=== PATIENT | female | born 1935 | race Caucasian/White ===

== ENCOUNTER 2017-01-19 16:33 | Emergency (ER) | payer MEDICARE, OTHER, MEDICAID ==
[2017-01-19 17:02] VITALS: BP 147/89
[2017-01-19] MEDS ORDERED: traMADol 50 MG Tab PO ONE (17:39)
--- NOTE | 2017-01-19 18:03 | EDM.PDOC ---
ED HPI GENERAL MEDICAL PROBLEM - General Chief Complaint: Head Injury Stated Complaint: Fall Time Seen by Provider: 01/19/17 17:10 Source of Information: Reports: Family, [facility] Records History Limitations: Reports: No Limitations - History of Present Illness INITIAL COMMENTS - FREE TEXT/NARRATIVE: 81 year old female presents to the ED, accompanied by family, for evaluation after a fall. She reportedly fell from her wheelchair. The fall was unwitnessed by intermediate staff. They were able to get her up with no concerns at time of the fall this morning. However, the patient began to complain of pain. She has dementia and is unable to say where her pain is. She has a bump to the back of her head. Family is present at bedside. The say the patient's mental status is at her baseline. She is normally confused with unorganized speech. The family does not feel she was injured badly. She is not on blood thinners. [ End ] - Related Data Allergies Allergy/AdvReac Type Severity Reaction Status Date / Time No Known Allergies Allergy Verified 01/19/17 16:58 Home Meds: Home Meds Albuterol/Ipratropium [DuoNeb 3.0-0.5 MG/3 ML] 1 ampule INH Q4HWA 07/28/14 [ History] Budesonide [Pulmicort] 0.5 mg IH BID 07/28/14 [History] Acetaminophen [Tylenol] 650 mg PO QID 12/31/14 [History] Bisacodyl [Dulcolax] 10 mg PO DAILY 01/19/17 [History] Capsaicin 42.5 gm TP DAILY 01/19/17 [History] Heat Tx 1 pad TOP DAILY 01/19/17 [History] LORazepam [Ativan] 0.5 mg PO DAILY 01/19/17 [History] Polyethylene Glycol 3350 [MiraLAX] 17 gm PO DAILY 01/19/17 [History] traMADol [Ultram] 50 mg PO BID 01/19/17 [History] Past Medical History Cardiovascular History: Reports: Afib, High Cholesterol, Hypertension Other Cardiovascular History: Hx AAA Respiratory History: Reports: COPD Gastrointestinal History: Reports: Chronic Constipation Genitourinary History: Reports: Urinary Incontinence Musculoskeletal History: Reports: Back Pain, Chronic, Fibromyalgia, Other (See Below) Other Musculoskeletal History: Dorsalgia Neurological History: Reports: Alzheimers Disease Psychiatric History: Reports: Aggressive/Hostile Behaviors, Alzheimers Disease , Anxiety, Dementia Social & Family History - Tobacco Use Smoking Status *Q: Former Smoker Years of Tobacco use: 70 Packs/Tins Daily: 1 Used Tobacco, but Quit: No Month Tobacco Last Used: 3 Second Hand Smoke Exposure: No - Caffeine Use Caffeine Use: Reports: None - Alcohol Use Days Per Week of Alcohol Use: 0 - Recreational Drug Use Recreational Drug Use: No - Living Situation & Occupation Living situation: Reports: Extended Care Facility Occupation: Retired ED ROS GENERAL - Review of Systems Review Of Systems: Unable To Obtain (due to dementia) ED EXAM, HEAD INJURY - Physical Exam Exam: See Below Exam Limited By: Altered Mental Status General Appearance: Alert, No Apparent Distress, Thin Head: Normocephalic, Other (posterior scalp bruising and redness. No hematoma.Otherwise normal head exam) Eyes: Bilateral Eye: EOMI, Normal Inspection, PERRL Ears: Normal External Exam, Normal Canal, Normal TMs Nose: Normal Inspection, Normal Mucousa, No Blood Throat/Mouth: Normal Inspection, Normal Oropharynx, No Airway Compromise Neck: Non-Tender, Full Range of Motion, Normal Alignment, Normal Inspection. No : Spinous Processes Tender, Tender Midline Respiratory: No Respiratory Distress, Lungs Clear, Normal Breath Sounds Cardiovascular: Regular Rate, Rhythm GI/Abdominal Exam: Normal Bowel Sounds, Soft, Non-Tender Back Exam: Normal Inspection, Full Range of Motion. No: Muscle Spasm, Paraspinal Tenderness, Vertebral Tenderness Extremities: Other (Tenderness with palpation of right hip. No external rotation or obvious deformity. Other extremities are normal. Pelvis is stable with rocking. ) Neurologic: No Motor/Sensory Deficits, Alert, Other (intact cerebellar testing. patient is confused at baseline ) - James Coma Score Best Eye Response ([place]): (4) Open Spontaneously Best Verbal Response (James): (4) Confused Conversation Best Motor Response (James): (6) Obeys Commands Course - Vital Signs Last Recorded V/S: Last Vital Signs Temp 98.5 F 01/19/17 16:58 Pulse 71 01/19/17 16:58 Resp 20 01/19/17 16:58 BP 147/89 H 01/19/17 16:58 Pulse Ox 96 01/19/17 16:58 - Orders/Labs/Meds Meds: Medications Discontinued Medications Generic Name Dose Route Start Last Admin Trade Name Elisabet PRN Reason Stop Dose Admin Tramadol HCl 50 mg 01/19/17 17:39 01/19/17 17:46 Ultram PO 01/19/17 17:40 50 mg ONETIME ONE Administration - Re-Assessments/Exams Free Text/Narrative Re-Assessment/Exam: I offered head CT but family declined. Patient does have a normal neuro exam with confusion at baseline. Full head to to exam reveals no areas of significant tenderness, deformity, bruising, or crepitus. She said "ouch" when I palpated her right hip, therefore x-rays were obtained. No acute fracture identified on x-ray. Patient was treated with Tramadol which she has ordered at the intermediate. She was discharged back to the intermediate. Departure - Departure Time of Disposition: 18:02 Disposition: DC/Tfer to Procurement Services Manager [facility] [place] [facility] Condition: Good Clinical Impression: Fall with no significant injury Qualifiers: Encounter type: initial encounter Qualified Code(s): W19.XXXA - Unspecified fall, initial encounter - Discharge Information Instructions: Fall Prevention in the Home, [id number] Referrals: Dilshad Daugherty MD [Primary Care Provider] - Forms: ED Department Discharge Additional Instructions: Continue current medications and Tramadol as prescribed Return to ER with any new or worsening symptoms, neurologic changes, or other concerns Follow-up with her PCP in 3-4 days for recheck
--- NOTE | 2017-01-20 07:26 | CR ---
Right hip: AP and frog-leg lateral views of the right hip were obtained. Moderate joint space narrowing seen diffusely within the right hip. Bony structures are osteopenic. Previous vertebroplasty is noted within L4. Extensive vascular calcification is present. Sclerotic lesion is seen within the proximal femoral shaft believed to be incidental. No acute fracture or other abnormality is identified. Impression: 1. Degenerative change, osteopenia and vascular calcification. 2. Other incidental findings. No acute abnormality is identified on two-view right hip exam. Diagnostic code #2
== END 2017-01-19 18:10 ==
LOC: JD.ED 16:33
DX: S00.03XA Contusion of scalp, initial encounter (principal); I10 Essential (primary) hypertension; I48.91 Unspecified atrial fibrillation; E78.00 Pure hypercholesterolemia, unspecified; J44.9 Chronic obstructive pulmonary disease, unspecified; F03.90 Unspecified dementia, unspecified severity, without behavioral disturbance, psychotic disturbance, mood disturbance, and anxiety; Z87.891 Personal history of nicotine dependence; Z79.899 Other long term (current) drug therapy; W05.0XXA Fall from non-moving wheelchair, initial encounter
CPT/HCPCS: 73502; 99284; A9270; 99283

== ENCOUNTER 2017-12-23 16:03 | Emergency (ER) | payer MEDICARE, OTHER, MEDICAID ==
--- NOTE | 2017-12-23 16:15 | EDM.PDOC ---
ED HPI GENERAL MEDICAL PROBLEM - General Chief Complaint: Lower Extremity Injury/Pain Stated Complaint: AMBULANCE Time Seen by Provider: 12/23/17 16:09 Source of Information: Reports: EMS, [facility] Records History Limitations: Reports: No Limitations - History of Present Illness INITIAL COMMENTS - FREE TEXT/NARRATIVE: The patient presents from the [facility] for unwitnessed fall and left hip pain. She was brought in by [facility]. They also said she was more confused. She has alzheimers and she is on medication. She does not walk and he bed is low to the ground. They do not thinks she had any LOC but they cannot be sure because it was unwitnessed. She has no pain complaints. She has no headache, neck pain, back pain, chest pain, abdominal pain, nausea or vomiting. Location: Reports: Lower Extremity, Left (hip) Severity: Moderate Improves with: Reports: Immobilization Worsens with: Reports: Movement Context: Reports: Trauma (There was an unwitnessed fall) Associated Symptoms: Reports: No Other Symptoms - Related Data Allergies Allergy/AdvReac Type Severity Reaction Status Date / Time No Known Allergies Allergy Verified 01/19/17 16:58 Home Meds: Home Meds Albuterol/Ipratropium [DuoNeb 3.0-0.5 MG/3 ML] 1 ampule INH Q4HWA 07/28/14 [ History] Budesonide [Pulmicort] 0.5 mg IH BID 07/28/14 [History] Acetaminophen [Tylenol] 650 mg PO QID 12/31/14 [History] Bisacodyl [Dulcolax] 10 mg PO DAILY 01/19/17 [History] Capsaicin 42.5 gm TP DAILY 01/19/17 [History] Heat Tx 1 pad TOP DAILY 01/19/17 [History] LORazepam [Ativan] 0.5 mg PO DAILY 01/19/17 [History] Polyethylene Glycol 3350 [MiraLAX] 17 gm PO DAILY 01/19/17 [History] traMADol [Ultram] 50 mg PO BID 01/19/17 [History] Past Medical History Cardiovascular History: Reports: Afib, High Cholesterol, Hypertension Other Cardiovascular History: Hx AAA Respiratory History: Reports: COPD Gastrointestinal History: Reports: Chronic Constipation Genitourinary History: Reports: Urinary Incontinence Musculoskeletal History: Reports: Back Pain, Chronic, Fibromyalgia, Other (See Below) Other Musculoskeletal History: Dorsalgia Neurological History: Reports: Alzheimers Disease Psychiatric History: Reports: Aggressive/Hostile Behaviors, Alzheimers Disease , Anxiety, Dementia Social & Family History - Caffeine Use Caffeine Use: Reports: None - Living Situation & Occupation Living situation: Reports: Extended Care Facility Occupation: Retired Review of Systems - Review of Systems Review Of Systems: See Below Constitutional: Reports: No Symptoms Eyes: Reports: No Symptoms Ears: Reports: No Symptoms Nose: Reports: No Symptoms Mouth/Throat: Reports: No Symptoms Respiratory: Reports: No Symptoms Cardiovascular: Reports: No Symptoms GI/Abdominal: Reports: No Symptoms Musculoskeletal: Reports: No Symptoms ED EXAM, GENERAL - Physical Exam Exam: See Below Exam Limited By: Other (The patient is alert but confused) General Appearance: Alert, Other (confused) Ears: Normal External Exam Nose: Normal Inspection Head: Atraumatic, Normocephalic Neck: Normal Inspection, Supple, Non-Tender Respiratory/Chest: No Respiratory Distress, Lungs Clear, Normal Breath Sounds Cardiovascular: Regular Rate, Rhythm, No Edema, No Murmur GI/Abdominal: Soft, Non-Tender, No Organomegaly, No Mass Back Exam: Normal Inspection Extremities: Normal Inspection Neurological: Alert, Other (Confused) Course - Re-Assessments/Exams Free Text/Narrative Re-Assessment/Exam: 12/23/17 16:14 Yoli my primary nurse for the patient cares for her at the [facility] and she said this is her normal. The patient has no pain complaints. I examined her and I cannot find anything that hurts. I feel it is safe for her to go home without any further studies. Departure - Departure Time of Disposition: 16:15 Disposition: Home, Self-Care 01 Condition: Good Clinical Impression: Fall Qualifiers: Encounter type: initial encounter Qualified Code(s): W19.XXXA - Unspecified fall, initial encounter - Discharge Information *PRESCRIPTION DRUG MONITORING PROGRAM REVIEWED*: Not Applicable *COPY OF PRESCRIPTION DRUG MONITORING REPORT IN PATIENT BRIT: Not Applicable Additional Instructions: Take your medication as prescribed. Please return if you are worse.
[2017-12-23 16:23] VITALS: BP 144/78
== END 2017-12-23 16:25 | disposition home or self-care (01) ==
LOC: JD.ED 16:03
DX: M25.552 Pain in left hip (principal); I48.91 Unspecified atrial fibrillation; I10 Essential (primary) hypertension; E78.00 Pure hypercholesterolemia, unspecified; J44.9 Chronic obstructive pulmonary disease, unspecified; Z79.899 Other long term (current) drug therapy
CPT/HCPCS: 99283; 99285

== ENCOUNTER 2017-12-25 00:05 | Emergency (ER) | payer MEDICARE, OTHER, MEDICAID ==
[2017-12-25 00:13] VITALS: BP 103/79
--- NOTE | 2017-12-25 01:30 | EDM.PDOC ---
ED HPI GENERAL MEDICAL PROBLEM - General Chief Complaint: Gastrointestinal Problem Stated Complaint: [facility] Time Seen by Provider: 12/25/17 00:16 Source of Information: Reports: RN History Limitations: Reports: Altered Mental Status (Dementia) - History of Present Illness INITIAL COMMENTS - FREE TEXT/NARRATIVE: The patient has dementia, and is unable to contribute to her history. Medical records indicate that the patient was seen in this ED on Monday, 2017, after falling out of bed at [facility]. No injury was found, and [facility]. [facility] is now [facility] from the [facility] after vomiting tonight. They report that she had been complaining of left hip pain. No x-rays of the patient's left hip were obtained on 2017. PMHx/PSHx/SocHx per the RN. - Related Data Allergies Allergy/AdvReac Type Severity Reaction Status Date / Time No Known Allergies Allergy Verified 12/25/17 00:13 Home Meds: Home Meds Albuterol/Ipratropium [DuoNeb 3.0-0.5 MG/3 ML] 1 ampule INH Q4HWA 07/28/14 [ History] Budesonide [Pulmicort] 0.5 mg IH BID 07/28/14 [History] Acetaminophen [Tylenol] 650 mg PO QID PRN 12/31/14 [History] Bisacodyl [Dulcolax] 10 mg PO ASDIRECTED PRN 01/19/17 [History] Capsaicin 42.5 gm TP DAILY 01/19/17 [History] Heat Tx 1 pad TOP DAILY 01/19/17 [History] Polyethylene Glycol 3350 [MiraLAX] 17 gm PO DAILY 01/19/17 [History] traMADol [Ultram] 50 mg PO TID 01/19/17 [History] Barrier Cream 1 appful TOP ASDIRECTED PRN 12/25/17 [History] Crush Medications 1 dose PO ASDIRECTED 12/25/17 [History] Fructooligosaccharides/Polydex [Hyfiber with Fos Liquid] 12 gm PO ASDIRECTED PRN 12/25/17 [History] Lactose-Reduced Food [Boost] 4 oz PO QID 12/25/17 [History] Nut.Tx.Impaired Digest Fxn [Ensure Clear] 4 oz PO QID 12/25/17 [History] Ondansetron [Zofran ODT] 1 tab PO Q8H PRN #10 tab.dis 12/25/17 [Rx] Past Medical History HEENT History: Reports: Impaired Vision, Macular Degeneration Cardiovascular History: Reports: Afib, High Cholesterol, Hypertension Other Cardiovascular History: Hx AAA, orthostatic hypotension Respiratory History: Reports: COPD Gastrointestinal History: Reports: Chronic Constipation Genitourinary History: Reports: Urinary Incontinence Other Genitourinary History: cystocele Musculoskeletal History: Reports: Back Pain, Chronic, Fibromyalgia, Other (See Below) Other Musculoskeletal History: Dorsalgia, difficulty with ambulation, abnormalities of gait and mobility Neurological History: Reports: Alzheimers Disease, Other (See Below) Other Neuro History: dementia Psychiatric History: Reports: Aggressive/Hostile Behaviors, Alzheimers Disease , Anxiety, Dementia Other Psychiatric History: mood disorder Hematologic History: Reports: Other (See Below) Other Hematologic History: blood thinners Dermatologic History: Reports: Other (See Below) Other Dermatologic History: chronic ecchymosis Social & Family History - Family History Family Medical History: Unobtainable - Tobacco Use Smoking Status *Q: Unknown Ever Smoked - Caffeine Use Caffeine Use: Reports: Coffee - Recreational Drug Use Recreational Drug Use: No - Living Situation & Occupation Living situation: Reports: Extended Care Facility Occupation: Retired ED ROS GENERAL - Review of Systems Review Of Systems: ROS reveals no pertinent complaints other than HPI. ED EXAM, GENERAL - Physical Exam Exam: See Below Exam Limited By: Altered Mental Status (confused, does not follow commands) General Appearance: Alert, No Apparent Distress, Thin Eye Exam: Bilateral Eye: EOMI, Normal Inspection Ears: Normal External Exam Nose: Normal Inspection, No Blood Throat/Mouth: Normal Inspection, Normal Lips, No Airway Compromise Head: Atraumatic, Normocephalic Neck: Normal Inspection Respiratory/Chest: No Respiratory Distress, Lungs Clear, Normal Breath Sounds, No Accessory Muscle Use Cardiovascular: Normal Peripheral Pulses, Regular Rate, Rhythm, No Gallop, No JVD, No Murmur, No Rub Peripheral Pulses: 4+: Radial (L), Radial (R) GI/Abdominal: Normal Bowel Sounds, Soft, Non-Tender, No Organomegaly, No Distention, No Abnormal Bruit, No Mass (Female) Exam: Deferred Rectal (Female) Exam: Deferred Extremities: Normal Inspection, Normal Range of Motion, Non-Tender, Normal Capillary Refill, Other Neurological: No Motor/Sensory Deficits, Confused Psychiatric: Other (Unable to assess) Skin Exam: Warm, Dry, Intact, Normal Color, No Rash Course - Vital Signs Last Recorded V/S: Last Vital Signs Temp 36.5 C 12/25/17 00:07 Pulse 120 H 12/25/17 00:07 Resp 18 12/25/17 00:07 BP 103/79 12/25/17 00:07 Pulse Ox 96 12/25/17 00:07 - Orders/Labs/Meds Labs: Laboratory Tests 12/25/17 12/25/17 12/25/17 Range/Units 00:50 01:05 01:05 WBC 23.38 H (3.98-10.04) K/mm3 RBC 3.22 L (3.98-5.22) M/mm3 Hgb 10.6 L (11.2-15.7) gm/L Hct 33.5 L (34.1-44.9) % MCV 104.0 H (79.4-94.8) fl MCH 32.9 H (25.6-32.2) pg MCHC 31.6 L (32.2-35.5) g/dl RDW Std Deviation 45.2 (36.4-46.3) fL Plt Count 205 (182-369) K/mm3 MPV 9.9 (9.4-12.3) fl Neutrophils % (Manual) 91 H (40-60) % Band Neutrophils % 1 (0-10) % Lymphocytes % (Manual) 6 L (20-40) % Atypical Lymphs % 0 % Monocytes % (Manual) 1 L (2-10) % Eosinophils % (Manual) 0 L (0.7-5.8) % Basophils % (Manual) 1 (0.1-1.2) Platelet Estimate Adequate Anisocytosis 1+ slight Macrocytosis 1+ slight Ovalocytes 1+ slight RBC Morph Comment Not Reportable Sodium 139 (136-145) mEq/L Potassium 4.7 (3.5-5.1) mEq/L Chloride 104 (98-107) mEq/L Carbon Dioxide 24 (21-32) mEq/L Anion Gap 15.7 H (5-15) BUN 45 H (7-18) mg/dL Creatinine 1.8 H (0.55-1.02) mg/dL Est Cr Clr Drug Dosing TNP Estimated GFR (MDRD) 27 (>60) mL/min BUN/Creatinine Ratio 25.0 H (14-18) Glucose 392 H (83-115) mg/dL POC Glucose (83-110) mg/dL Calcium 9.5 (8.5-10.1) mg/dL Magnesium 1.9 (1.8-2.4) mg/dl Total Bilirubin 1.3 H (0.2-1.0) mg/dL AST 19 (15-37) U/L ALT 24 (14-59) U/L Alkaline Phosphatase 64 (46-116) U/L Total Protein 6.5 (6.4-8.2) g/dl Albumin 3.5 (3.4-5.0) g/dl Globulin 3.0 gm/dL Albumin/Globulin Ratio 1.2 (1-2) Urine Color Yellow (Yellow) Urine Appearance Cloudy H (Clear) Urine pH 6.0 (5.0-8.0) Ur Specific [place] > or = 1.030 (1.005-1.030) Urine Protein 2+ H (Negative) Urine Glucose (UA) Negative (Negative) Urine Ketones Trace H (Negative) Urine Occult Blood Negative (Negative) Urine Nitrite Negative (Negative) Urine Bilirubin Negative (Negative) Urine Urobilinogen 0.2 (0.2-1.0) Ur Leukocyte Esterase Trace H (Negative) Urine RBC 0-5 (0-5) /hpf Urine WBC 5-10 H (0-5) /hpf Urine WBC Clumps Occasional (NOT SEEN) /hpf Ur Epithelial Cells 10-20 H (0-5) /hpf Amorphous Sediment Moderate H (NOT SEEN) /hpf Urine Bacteria Moderate H (FEW) /hpf Urine Mucus Few (FEW) /hpf 12/25/17 Range/Units 02:49 WBC (3.98-10.04) K/mm3 RBC (3.98-5.22) M/mm3 Hgb (11.2-15.7) gm/L Hct (34.1-44.9) % MCV (79.4-94.8) fl MCH (25.6-32.2) pg MCHC (32.2-35.5) g/dl RDW Std Deviation (36.4-46.3) fL Plt Count (182-369) K/mm3 MPV (9.4-12.3) fl Neutrophils % (Manual) (40-60) % Band Neutrophils % (0-10) % Lymphocytes % (Manual) (20-40) % Atypical Lymphs % % Monocytes % (Manual) (2-10) % Eosinophils % (Manual) (0.7-5.8) % Basophils % (Manual) (0.1-1.2) Platelet Estimate Anisocytosis Macrocytosis Ovalocytes RBC Morph Comment Sodium (136-145) mEq/L Potassium (3.5-5.1) mEq/L Chloride (98-107) mEq/L Carbon Dioxide (21-32) mEq/L Anion Gap (5-15) BUN (7-18) mg/dL Creatinine (0.55-1.02) mg/dL Est Cr Clr Drug Dosing Estimated GFR (MDRD) (>60) mL/min BUN/Creatinine Ratio (14-18) Glucose (83-115) mg/dL POC Glucose 294 H (83-110) mg/dL Calcium (8.5-10.1) mg/dL Magnesium (1.8-2.4) mg/dl Total Bilirubin (0.2-1.0) mg/dL AST (15-37) U/L ALT (14-59) U/L Alkaline Phosphatase (46-116) U/L Total Protein (6.4-8.2) g/dl Albumin (3.4-5.0) g/dl Globulin gm/dL Albumin/Globulin Ratio (1-2) Urine Color (Yellow) Urine Appearance (Clear) Urine pH (5.0-8.0) Ur Specific [place] (1.005-1.030) Urine Protein (Negative) Urine Glucose (UA) (Negative) Urine Ketones (Negative) Urine Occult Blood (Negative) Urine Nitrite (Negative) Urine Bilirubin (Negative) Urine Urobilinogen (0.2-1.0) Ur Leukocyte Esterase (Negative) Urine RBC (0-5) /hpf Urine WBC (0-5) /hpf Urine WBC Clumps (NOT SEEN) /hpf Ur Epithelial Cells (0-5) /hpf Amorphous Sediment (NOT SEEN) /hpf Urine Bacteria (FEW) /hpf Urine Mucus (FEW) /hpf Meds: Medications Discontinued Medications Generic Name Dose Route Start Last Admin Trade Name Freq PRN Reason Stop Dose Admin Sodium Chloride 1,000 mls @ 150 mls/hr 12/25/17 02:45 12/25/17 02:45 Normal Saline IV 150 mls/hr ASDIRECTED STACY Administration Insulin Human Regular 10 unit 12/25/17 02:38 12/25/17 02:46 Humulin R SUBCUT 12/25/17 02:39 7 units ONETIME STA Administration Ondansetron HCl 4 mg 12/25/17 02:35 12/25/17 02:45 Zofran IVPUSH 12/25/17 02:36 4 mg ONETIME ONE Administration - Re-Assessments/Exams Free Text/Narrative Re-Assessment/Exam: 12/25/17 01:29 2-view radiographs of the left hip and pelvis appear to demonstrate considerable tool in the rectal area, but no pelvic or hip fracture. There is osteopenia. Formal read per the Radiologist pending. 12/25/17 02:36 The patient's WBC count has returned elevated at 23.38, with 1% bandemia. The patient's BUN/Cr has returned elevated at 45/1.8. It was 31/0.9 on 07/14/2016. The patient's blood glucose has returned elevated at 392. It was 102 on 07/14/2016 , although has been modestly elevated previously. She does not have a previous diagnosis of diabetes. I have ordered normal saline at 150 mL/hr, 4 mg IV Zofran, and 10 units of regular insulin SQ. The patient will require admission to the hospital. 12/25/17 02:58 I am told by Kenya CHRIS that the patient is comfort care at [facility]. Since renal failure and diabetes are not painful processes, the patient does not require admission to the hospital. [facility] with a prescription for Zofran. Departure - Departure Time of Disposition: 02:59 Disposition: Home, Self-Care 01 Condition: Fair Clinical Impression: Leukocytosis, Acute kidney injury, Newly diagnosed diabetes, Nausea & vomiting - Discharge Information *PRESCRIPTION DRUG MONITORING PROGRAM REVIEWED*: Not Applicable *COPY OF PRESCRIPTION DRUG MONITORING REPORT IN PATIENT BRIT: Not Applicable Prescriptions: Ondansetron [Zofran ODT] 1 tab PO Q8H PRN #10 tab.dis PRN Reason: Nausea/Vomiting Instructions: Leukocytosis Referrals: PCP,None [Primary Care Provider] - Forms: ED Department Discharge Additional Instructions: Ms. Ram was seen in the emergency room for a concern about her left hip, as well as for vomiting tonight. Workup in the ER included blood work, urinalysis, and an x-ray of her left hip. Her blood work revealed an elevated white blood cell count, although no obvious infection was found. Her bloodwork also revealed kidney dysfunction and elevated blood glucose, consistent with diabetes. The x-ray of her left hip did not show a fracture. As Ms. Ram is comfort care only, she may safely be returned to the [facility]. A prescription for the anti-nausea medicine Zofran has been provided. She can dissolve 1 tablet on her tongue up to every 8 hours, as needed for nausea/ vomiting. If any other problems, please do not hesitate to return Ms. Ram to the ER.
[2017-12-25] MEDS ORDERED: Ondansetron 4 MG/2 ML SDV IVPUSH ONE (02:35)
[2017-12-25] MEDS ORDERED: Insulin Regular, Human 100 Units/ML 3 ML Vial SUBCUT STA (02:38)
[2017-12-25] MEDS ORDERED: Sodium Chloride 0.9% 1,000 ML IV SCH (02:45)
--- NOTE | 2017-12-25 07:15 | CR ---
Pelvis and left hip: AP view of the pelvis was obtained as well as AP views centered to the left hip. Comparison: Prior right hip exam of 01/19/17 and AP pelvis exam of 12/17/14. Vascular calcification is seen. Severe joint space narrowing seen within the left hip. Moderate to severe joint space narrowing noted within the right hip. Bony structures are osteoporotic. Minimal irregularity is seen within the subcapital region of the left hip and difficult to exclude a slightly impacted fracture. No additional abnormality is seen. Impression: 1. Degenerative change within both hips. Vascular calcification and osteoporosis. 2. Minimal irregularity within the subcapital region of the left hip. As mentioned above, difficult to completely exclude a slightly impacted fracture. CT exam or MRI would be helpful to confirm if clinically needed. Diagnostic code #5
== END 2017-12-25 03:25 | disposition home or self-care (01) ==
LOC: JD.ED 00:05
DX: M25.552 Pain in left hip (principal); R11.2 Nausea with vomiting, unspecified; E11.9 Type 2 diabetes mellitus without complications; N17.9 Acute kidney failure, unspecified; I10 Essential (primary) hypertension
CPT/HCPCS: 36415; 73501; 80053; 81001; 82962; 83735; 85007; 85027; 96361; 96372; 96374; 99285; J1815; J2405; J7040